=== PATIENT | female | born 1965 | race Caucasian/White ===

== ENCOUNTER 2020-08-07 12:58 | Emergency (ER) | payer BC, SELFPAY ==
[2020-08-07 13:05] VITALS: BP 112/84; PULSE 81; RESP 16; TEMP 37.6; O2SAT 97
--- NOTE | 2020-08-07 13:15 | DI.RAD_ITS ---
EXAM: XR TIB/FIB LT and XR ankle LT complete CLINICAL HISTORY: R/O fracture. TECHNIQUE: 2D digital imaging was performed COMPARISON: No previous for comparison. FINDINGS: BONES: There is an oblique fracture of the distal left fibula. There is 1-2 mm of lateral displaceme nt. The medial aspect of the fracture is at the level of the talar dome. No bony destructive lesion is seen. Visualized portion of knee and ankle joints are unremarkable. SOFT TISSUE: Soft tissue swelling about the ankle. IMPRESSION: Oblique distal left fibular fracture with 1-2 mm of lateral displacement. DATA REPOSITORY: RADIATION DOSE DELIVERED:
--- NOTE | 2020-08-07 13:19 | ED.GENADUL_ITS ---
Discharge Plan Disposition Patient Disposition: HOME Condition: Stable Discharge Details Clinical Impression: Fracture of distal end of fibula Primary Care Provider: Leonila Gong ED Provider: Laure Villeda Home Meds and New Rx's Prescriptions: No Action No Known Home Meds RF: 0 Discharge Instructions Instructions: Leg Fracture (ED) Additional Instructions: At this time your x-rays show a distal fibula fracture, please follow-up with orthopedics within 1 to 2 weeks. You will be placed on a care management list to help you with the appointment. Wear walking boot as much as possible, stay off of the leg is much as possible. Rest, ice, compression, elevation. Please take Tylenol or Ibuprofen with food every 4-6 hours as needed for pain and swelling. Referrals: Leonila Gong NP [Primary Care Provider] - Raheem Reynolds MD [ [facility] STAFF PHYSICIAN] - Discharge Data Discharge Date/Time-TO BE ENTERED AT DEPARTURE: 08/07/20 15:30 Medical Decision Making 55-year-old female presents to the ED with left ankle pain and swelling after a slip and fall down an incline earlier today. This happened around 839 morning. She was unable to ambulate on ankle after incident. Denies hitting her head or any loss consciousness no other injuries. She reports pain radiating up to her left anterior boyd. She does have swelling noted to her lateral malleolus. Dorsal pedal pulses intact, did not take any medications prior to arrival. EXAM: XR TIB/FIB LT and XR ankle LT complete CLINICAL HISTORY: R/O fracture. TECHNIQUE: 2D digital imaging was performed COMPARISON: No previous for comparison. FINDINGS: BONES: There is an oblique fracture of the distal left fibula. There is 1-2 mm of lateral displacement. The medial aspect of the fracture is at the level of the talar dome. No bony destructive lesion is seen. Visualized portion of knee and ankle joints are unremarkable. SOFT TISSUE: Soft tissue swelling about the ankle. IMPRESSION: Oblique distal left fibular fracture with 1-2 mm of lateral displacement. Discussed x-ray results with patient, verbalized understanding. Patient was placed in a walking boot and given crutches. Referral given to orthopedics. HPI General Mode of arrival: wheelchair . Date/Time Provider Initiated Documentation: 08/07/20 13:12 . Limitations to Documentation: no limitations . Information obtained by: patient . HPI Narrative: 55-year-old female presents to the ED with left ankle pain and swelling after a slip and fall down an incline earlier today. This happened around 839 morning. She was unable to ambulate on ankle after incident. Denies hitting her head or any loss consc iousness no other injuries. She reports pain radiating up to her left anterior boyd. She does have swelling noted to her lateral malleolus. Dorsal pedal pulses intact, did not take any medications prior to arrival. Related Data Home Medications Medication Instructions Recorded Confirmed Unknown [No Known Home Meds] 08/07/20 08/07/20 Allergies Allergy/AdvReac Type Severity Reaction Status Date / Time Penicillins Allergy Intermediate Unverified 08/07/20 13:12 General Stated Complaint: Orthopedic MELQUIADES: 4 Review of Systems Narrative: Constitutional: Negative for weight loss, alert and oriented, well groomed, normal body habitus, appears comfortable. HEENT: Denies trauma, headaches, blurry vision, nasal discharge, sore throat, trouble swallowing. Chest: Denies chest pain, palpitations, irregular rhythm, hypertension. Respiratory: Denies Shortness of breath, cough, hemoptysis. GI: Denies abdominal pain, nausea, vomiting, diarrhea, constipation. : Denies dysuria, hematuria, flank pain, rectal bleeding. Musculoskeletal: Complaining of left ankle pain and swelling. Neuro: Denies dizziness, blurry vision, weakness, syncope, headache or facial numbness. Hematologic: Denies easy bruising, intolerance to heat or cold, hair loss. PFSH Social History Smoking/Tobacco Use Status: Former Tobacco Use Smoking risk assessment performed?: Yes Alcohol Intake: current Alcohol Intake frequency: holidays/special occasions only Alcohol type: wine Drug use: Never Substance use type: does not use Details: quit smoking 25-30 yrs ago smoked socially Do you feel safe at home: Yes Do you feel safe in your relationship?: Yes Exam Narrative Exam Narrative: Constitutional: Alert and oriented x3. Appears stated age. Normal body habitus. Head: Normocephalic, no trauma. Eyes: Pupils PERRLA, Red reflex noted, EOM's intact. Eyelids symmetrical without lesions, discharge, or swelling. ENT: Bilateral TM's WNL, External ear normal to inspection, no mastoid TTP, swelling, or erythema, Nasal turbinates WNL, no nasal discharge. Normal dentition, Posterior pharynx WNL, no exudate. Chest: RRR, Normal S1, S2, distal pulses intact. Resp: Lungs clear to auscultation bilaterally, no wheezes, rales, or rhonchi. Musculoskeletal: Left lateral malleolus swelling, tenderness noted over lateral malleolus, dorsal pedal pulses intact, distal CMS intact, cap refill less than 2 seconds. Skin: No suspicious rashes or lesions. Capillary refill less than 2 sec. Neurologic: Cranial nerves II-XII intact. Alert and oriented x 3. DTR's intact. Hematologic/Lymphatic: No ecchymosis, no lymphadenopathy. Course Vital Signs Vital signs: Vital Signs Temperature 37.6 C H 08/07/20 13:05 Pulse 81 08/07/20 13:05 Respiratory Rate 16 08/07/20 13:05 Blood Pressure 112/84 08/07/20 13:05 Pulse Oximetry 97 08/07/20 13:05 Temperature 37.6 C H 08/07/20 13:05 Temperature Source Temporal Artery Scan 08/07/20 13:05 Pulse 81 08/07/20 13:05 Respiratory Rate 16 08/07/20 13:05 Respiratory Effort 08/07/20 13:13 Blood Pressure 112/84 08/07/20 13:05 Blood Pressure Position Sitting 08/07/20 13:05 Pulse Oximetry 97 08/07/20 13:05 Oxygen Delivery Method Room Air 08/07/20 13:05 Oxygen Flow Rate 0 08/07/20 13:05 Pain Level 6 08/07/20 13:05 Comment 08/07/20 13:05
[2020-08-07 14:03] VITALS: BP 104/67; PULSE 72; RESP 16; O2SAT 97
== END 2020-08-07 15:30 | disposition home or self-care (01) ==
PROVIDERS: Emergency Provider Registered Nurse Emergency
DX: S82.432A Displaced oblique fracture of shaft of left fibula, initial encounter for closed fracture (principal); W00.0XXA Fall on same level due to ice and snow, initial encounter; W17.81XA Fall down embankment (hill), initial encounter
CPT/HCPCS: 27786; 73590; 73610

== ENCOUNTER 2020-08-13 11:54 | Outpatient (CLI) | payer BC, SELFPAY ==
--- NOTE | 2020-08-13 10:45 | DI.RAD_ITS ---
EXAM: XR ANKLE LT COMPLETE CLINICAL HISTORY: with gravity stress view TECHNIQUE: 2D digital imaging was performed. COMPARISON: CR XR ANKLE LT COMPLETE from 08/07/2020 FINDINGS: BONES: Stable alignment of the mildly displaced distal fibular fracture. No new fracture or dislocat ion is present. No bony destructive lesion is seen. JOINTS:The ankle mortise is normally aligned. SOFT TISSUE: Soft tissue swelling about the ankle laterally. IMPRESSION: Stable distal fibular fracture. DATA REPOSITORY: RADIATION DOSE DELIVERED:
== END 2020-08-13 12:14 ==
PROVIDERS: Visit Provider Student in an Organized Health Care Education/Training Program
DX: S82.492A Other fracture of shaft of left fibula, initial encounter for closed fracture (principal)
CPT/HCPCS: 73610

== ENCOUNTER 2020-08-14 03:33 | Outpatient (CLI) | payer BC, SELFPAY ==
[2020-08-16 11:49] LABS: SARS-CoV-2 RNA Not Detected (NotDetected); SARS-CoV-2 RNA Source Nasal/Nares
== END 2020-08-14 03:53 ==
PROVIDERS: Visit Provider Student in an Organized Health Care Education/Training Program
DX: Z11.59 Encounter for screening for other viral diseases (principal); Z01.818 Encounter for other preprocedural examination
CPT/HCPCS: U0003

== ENCOUNTER 2020-08-19 06:17 | Day surgery (SDC) | payer BC, SELFPAY ==
[2020-08-19] VITALS (14 sets, daily range): BP systolic 74–122; BP diastolic 43–69; PULSE 60–88; RESP 12–19; TEMP 36.2–36.5; O2SAT 98–100
[2020-08-19] MEDS: Acetaminophen 500 MG TAB 1000 MG PO (07:01)
[2020-08-19] MEDS: Celecoxib 200 MG CAP 400 MG PO (07:01)
[2020-08-19] MEDS: Lactated Ringers 1,000 ML 80 ML IV ×2 (07:02→10:01)
[2020-08-19] MEDS: Bupivacaine 0.5% Pres-Free 30 ML VIAL ×2 (07:31→08:11)
--- NOTE | 2020-08-19 07:37 | PDOC.DSDIS_ITS ---
Discharge Plan Disposition Patient Disposition: HOME Condition: Good Discharge Details Reason For Visit: Left distal fibula fracture Attending Provider: Raheem Reynolds Primary Care Provider: Leonila Gong Home Meds and New Rx's Prescriptions: New hydrocodone-acetaminophen 5-325 mg tablet 1 tab PO Q4H PRN (Reason: pain) Qty: 14 RF: 0 aspirin 81 mg tablet,delayed release (DR/EC) 81 mg PO BID Qty: 60 RF: 0 acetaminophen 500 mg tablet 500 mg PO Q6H PRN PRN (Reason: pain) Qty: 60 RF: 3 docusate sodium [Colace] 100 mg capsule 100 mg PO BID PRNQty: 10 RF: 0 ibuprofen 600 mg tablet 600 mg PO TID PRNQty: 60 RF: 3 Discontinued ibuprofen 200 mg Tablet 400 mg PO Q4H PRNRF: 0 Discharge Instructions Additional Instructions: Ankle ORIF Discharge Instructions Activity: You are TOUCHDOWN WEIGHT BEARING. You should keep the leg elevated as much as possible. You may wiggle your toes and move your hip and knee. You may rest your leg on the ground for balance with mobilization but should avoid pushing off. Use your crutches to assist in this. Use your knee scooter as much as you can at first. Dressings: You should keep your splint clean and dry. Do NOT get wet or dirty. If you have issues with your splint, please call the office at [phone] Reynolds directly at [phone]. Medications: - You should take Tylenol and Ibuprofen around the clock for baseline pain. - You have been prescribed a stronger narcotic, Hydrocodone, for breakthrough pain. - You should take a Baby Aspirin (81mg) twice a day for blood clot prevention. Follow-up: 2 weeks Referrals: Raheem Reynolds MD [ [facility] STAFF PHYSICIAN] - Equipment/Supplies: Partial Weight Bearing Crutches Activity:: Elevate Remove Dressings/Wound Care:: Do Not Remove Shower/Bathe:: Cover Diet:: As Tolerated Discharge Orders Discharge Orders: Discharge Order (Routine); Ordered 08/19/20 Ordered By: Raheem Reynolds DS: Diagnosis Discharge Diagnosis (1) Fracture of distal end of fibula: Status: Acute
[2020-08-19] MEDS: ceFAZolin 2 GM/50 ML BAG IVPB (07:46)
--- NOTE | 2020-08-19 08:40 | DI.RAD_ITS ---
EXAM: XR ANKLE LT COMPLETE CLINICAL HISTORY: left ankle fracture TECHNIQUE: COMPARISON: No exams were available for comparison FINDINGS: C-arm fluoroscopy was utilized by Dr. Reynolds during open reduction and internal fixation of fractur e of the distal fibula. Hard copy shows plate and screw fixation in place. Fluoro time, 20.5 seconds. IMPRESSION: RADIATION DOSE DELIVERED: Total DLP
[2020-08-19] MEDS: ePHEDrine 50 MG/ML VIAL IVP (09:39)
--- NOTE | 2020-08-19 13:31 | PT.INIE ---
Date of service: 08/19/20 Time of Service: 13:31 PT Notes Visit Reasons: Left distal fibula fracture Physical Therapy Inpatient Initial Evaluation Date: 08/19/2020 Referring Doctor: Raheem Reynolds MD PT Orders: PT CONSULT: Eval for assistive device. Crutch training. Has knee scooter. TTWB left LE. Precautions: Fall. Standard. TTWB L LE. Patient Profile/Admitting Diagnosis: Kristen is a 55-year-old female who sustained a left distal fibular fracture from a slip and fall on an incline on 08/07/2020 and is status post ORIF on postoperative day 0. PMHX: Unremarkable Social History/Home Situation: Lives with son in a split-level home with 3 steps to enter and rails on both sides. She has another 4 steps to her bedroom. States that she can stay on the main floor of the house weeks until she sees the orthopedic surgeon. Independent with all aspects of ADLs prior to surgery. Equipment Owned/DME: Bilateral axillary crutches, knee scooters x 2 Subjective: Reports minimal groin pain throughout PT session which Mandeep Eagle think may be from positioning while in the OR. Complains of L foot numbness from anetshesia. Denies headache, dizziness, chest pain throughout. Objective: General Observation: Mandeep Eagle assisting for safety. L leg and foot in a splint wrapped with HUMZA bandages. Iv access in dorsum of R wrist. Mental Status: Alert and oriented x4 Pain: minimal groin pain Vital Signs: WNL as closely monitored by Nurse Carrasco ROM: Right Upper Extremity: Shoulder Flexion WFL. Shoulder abduction WFL. Elbow flexion WFL. Wrist flexion WFL. Opening and closing of hand WFL. Left Upper Extremity: Shoulder Flexion WFL. Shoulder abduction WFL. Elbow flexion WFL. Wrist flexion WFL. Opening and closing of hand WFL. Right Lower Extremity: Hip flexion WFL. Hip abduction WFL. Knee flexion WFL. Ankle dorsiflexion NT. Ankle plantarflexion NT. Left Lower Extremity: Hip flexion WFL. Hip abduction WFL. Knee flexion WFL. Ankle dorsiflexion WFL. Ankle plantarflexion WFL. Strength: Right Upper Extremity: Shoulder flexors 5/5. Shoulder abductors 5/5. Elbow flexors 5/5. Elbow extensors 5/5. Information Technology Architect strong. Left Upper Extremity: Shoulder flexors 5/5. Shoulder abductors 5/5. Elbow flexors 5/5. Elbow extensors 5/5. Information Technology Architect strong. Right Lower Extremity: Hip flexors 5/5. Hip abductors 5/5. Knee flexors 5/5. Knee extensors 4-/5. Ankle dorsiflexors NT. Ankle plantarflexors NT. Left Lower Extremity:Hip flexors 5/5. Hip abductors 5/5. Knee flexors 5/5. Knee extensors 5/5. Ankle dorsiflexors 5/5. Ankle plantarflexors 5/5. Sensation: Intact as to pain and pressure on bilateral lower extremities except in the L foot Bed Mobility/Transfers: Rolling supervision Supine to sit supervision Sit to supine supervision Sit to stand contact-guard assist Stand to sit contact-guard assist Bed to chair contact-guard assist Chair to bed contact-guard assist Gait: 25 feet level surface ambulation using front wheeled walker with toe-touch weight bearing on the left LE. 5 feet of short distance ambulation from bottom of steps to back to chair with toe-touch weight bearing on the left LE. Up and down eight 6-inch steps while holding onto 1 rail with 1 hand and a crutch with the other hand with minimal assist. Patient required minimal to moderate verbal cueing for correct technique and safety. Balance: Static Sitting: Normal Dynamic Sitting: Normal Static Standing: Fair Dynamic Standing: Fair Special Tests: Mobility Limitations Standardized Measure [facility] AM-PAC 6 clicks Basic Mobility Inpatient Short Form: Raw Score: 18 CMS Score: 47% deficit Informed Consent/Education: Patient instructed in purpose of PT consult and plan of care. Assessment: Kristen demonstrates functional mobility decline requiring the use of a front wheeled walker for all mobility ADL performance and bilateral axillary crutches for short distance ambulation, balance limitation due to weight bearing restriction on the left LE, and increased risk for falls due to postoperative status. She will require assistance from another person for safety to get into her entrance steps while holding onto bilateral rails. She understands the importance of using her knee scooter for all transfer and ambulation task performance to ensure that she does not put any unnecessary weight on the left LE as she remains numb in the left foot. She is confident about going home today as she will have the assistance of the her son's friend on the entrance steps. She plans on staying on the main floor of the house where she can safely access the kitchen and the bathroom. Patient presents with clinical signs and symptoms consistent with current/admitting diagnoses that have resulted to mobility limitations, gait instability, generalized weakness, and impairment of motor control as demonstrated by the following impairment level findings: 1. Decreased strength to left leg and ankle major muscle groups 2. Impaired sitting/standing balance 3. Impaired activity tolerance 4. Limitation of joint range of motion in left ankle Impairments are contributing to the following functional limitations: 1. Inability to safely ambulate without assistive device 2. Increase completion time for mobility ADL performance 3. Increased fall risk 4. Inability to negotiate steps alone safely Patient is assessed as a [id number] moderate complexity based on the following: History: 55-year-old female with impairment level findings, functional limitations, and past medical history as indicated above Examination: Demonstrable impairment in strength, balance, and mobility level with underlying impairments and functional limitations as documented above Presentation:Evolving Decision Makin moderate complexity Goals: N/A. PT consult and 1 treatment session only for education and training with the use of assistive device for all mobility ADL performance. Plan of Care/Treatment Plan: N/A. PT consult and 1 treatment session only for education and training with the use of assistive device for all mobility ADL performance. DISCHARGE RECOMMENDATIONS: Outpatient PT services in 2 weeks to facilitate return to premorbid independent level. TREATMENT CODE/TIME: 47274 x 25 minutes, 48291 x 14 minutes beginning at 13:31 PM. Thank you for the opportunity to participate in the care of this patient. Tiara Flores PT, DPT, CLT [facility] [place], [place]
--- NOTE | 2020-08-19 13:49 | W.PM.OP ---
Date of service: 08/19/20 Time of Service: 08:49 Operative Note Operative Note DATE OF PROCEDURE: 08/19/20 PRE-OP DIAGNOSIS: Left Ankle Fracture - Distal Fibula POST-OP DIAGNOSIS: same PROCEDURE: Open Reduction and Internal Fixation of Left Ankle - Distal Fibula SURGEON: Raheem Reynolds CHARGE MASTER ANALYST: Jemal Hilario ANESTHESIA: spinal ESTIMATED BLOOD LOSS: 50 PATHOLOGY: none sent TOURNIQUET TIME: 0 COMPLICATIONS: None Patient was transported to: PACU Patient's condition: stable Indications: Kristen is a 55yo female who presented to the Emergency Department after a fall. X-rays confirmed the diagnosis of a ankle fracture, distal fibula. She was treated conservatively at first but repeat x-rays showed widening of the ankle mortise and abnormal talar tilt as a result of the displaced Alvarez B fibula fracture. Therefore, I reviewed the possible treatment options and given these findings, I recommended operative fixation. I discussed the technical details of the surgery. I reviewed the risks such as bleeding, infection, pain, stiffness, malunion, nonunion, hardware prominence, hardware faiilure, malrotation, damage to nerves and vessels, blood clot. Despite these risks, Kristen agreed to proceed. Findings: There was a fracture of the fibula which was reduced with traction and internal rotatio. This was secured with a clamp and k-wire. The fracture was fixed with a distal fibula locking plate. Procedure Description: Kristen was greeted in the preoperative area. Consent was previously reviewed and signed. Once in the operating room, anesthesia was administered. The patient was transferred to the fracture table in the supine position. She was positioned in the supine position with the operative side placed onto a bone foam ramp. All bony prominences were well padded. Arms were placed out to the side, padded, and secured. A single dose of TXA, 1 gram, was then administered IV. Prophylactic antibiotics, Cefazolin 2 grams, was given for prophylactic antibiotics. A timeout was performed for safe surgery. The left leg was prepped with Chloraprep. The leg was draped with a stockinette and extremity drape. A longitudinal incision was made overlying the fibula. Dissection was carried sharply the skin is cutaneous tissue. Deeper tissue was dissected bluntly to expose the fascia of the fibula. The fibular fascia was incised sharply with Bovie electrocautery. Flaps were elevated anteriorly and posteriorly to expose the fibula and fracture. Fracture was opened up with a [place] elevator. A curette was used to clear of any early healing, fibrous tissue, clot, or debris. The fracture is mobile reduction was performed by internally rotating and applying traction to the fibular fragment. This was then held with a clamp. The fracture was oriented in a distal medial to proximal lateral direction. Lying this fracture will be challenging without impending the complaints therefore I told the reduction with a clamp. Placed a K wire across the fracture to hold. X-rays used to confirm appropriate positioning of the fibula and reduction of the talus. The distal fibular plate was applied. Once happy with this position, a single 3.5 mm cortical screw was placed proximally in the oblong hole. A clamp was used to keep the distal end of the plate on the bone and manual pressure was also applied. Then placed a locking screw to hold the plate on bone. A total of 4 locking screws were placed in this distal fragment. Once again x-ray was used to confirm appropriate positioning of the plate and the hardware. I then placed 2 proximal cortical screws one 2.7 and one 3.5. The wound was thoroughly irrigated. Final x-rays were obtained. External rotation stress views were obtained and they show no change in position of the talus. Deep tissues and subtenons tissue was injected with a mixture of 0.25% ropivacaine, 30 mg ketorolac, and 20 cc of Exparel. The fascia was closed with 0 Vicryl. Deep tissues closed with 2-0 Vicryl. Skin was closed with a running 3-0 Monocryl. Mepilex silver dressings applied followed by web roll and ABD pads. She was placed into a posterior slab splint. At the end of the case, all counts were correct. She left tolerated the procedure well without known complication and was taken to the PACU for recovery. She will be discharged to home. She is toe-touch weightbearing on the left leg dimension start aspirin 81 mg twice daily for DVT prophylaxis.
== END 2020-08-19 14:56 | disposition home or self-care (01) ==
PROVIDERS: Visit Provider Student in an Organized Health Care Education/Training Program
PROC: (CPT 27792; principal; 2020-08-19 07:30)
DX: S82.62XA Displaced fracture of lateral malleolus of left fibula, initial encounter for closed fracture (principal); W19.XXXA Unspecified fall, initial encounter
CPT/HCPCS: 27792; 76942; 97162; 97530; 73610; J0690; J1885; J2001; J2250; J2405

== ENCOUNTER 2020-09-04 11:16 | Outpatient (CLI) | payer BC, SELFPAY ==
--- NOTE | 2020-09-04 10:45 | DI.RAD_ITS ---
EXAM: XR ANKLE LT COMPLETE INDICATION: f/u fracture. COMPARISON: CR XR ANKLE LT COMPLETE from 08/13/2020 XR ANKLE LT COMPLETE from 08/19/2020 TECHNIQUE: 2D digital imaging was performed. FINDINGS: The ankle is viewed within a splint. A fixation plate is again noted in the lateral malleolus. The fracture appears anatomically aligned. No ankle mortise widening is seen. DATA REPOSITORY: RADIATION DOSE DELIVERED:
== END 2020-09-04 11:36 ==
PROVIDERS: Visit Provider Student in an Organized Health Care Education/Training Program
DX: S82.492A Other fracture of shaft of left fibula, initial encounter for closed fracture (principal)
CPT/HCPCS: 73610

== ENCOUNTER → 2020-10-02 10:52 | Outpatient (CLI) | payer BC, SELFPAY ==
--- NOTE | 2020-10-02 10:45 | DI.RAD_ITS ---
EXAM: XR ANKLE LT COMPLETE CLINICAL HISTORY: F.U FRACTURE. TECHNIQUE: 2D digital imaging was performed. COMPARISON: CR XR ANKLE LT COMPLETE from 09/04/2020 FINDINGS: BONES: There are stable post operative changes present. No new fracture or dislocation. The bones ar e osteopenic likely from decreased use. JOINTS: The joint spaces are well maintained. No joint effusion is present. SOFT TISSUE: Normal. The cast has been removed. IMPRESSION: Stable postoperative changes. DATA REPOSITORY: RADIATION DOSE DELIVERED:
== END ==
PROVIDERS: Visit Provider Student in an Organized Health Care Education/Training Program
DX: S82.892A Other fracture of left lower leg, initial encounter for closed fracture (principal)
CPT/HCPCS: 73610

== ENCOUNTER 2020-11-13 11:25 | Outpatient (CLI) | payer BC, SELFPAY ==
--- NOTE | 2020-11-13 10:30 | DI.RAD_ITS ---
EXAM: XR ANKLE LT COMPLETE INDICATION: fu left ankle orif. COMPARISON: CR XR ANKLE LT COMPLETE from 08/07/2020 CR XR TIB/FIB LT from 08/07/2020 CR XR ANKLE LT COMPLETE from 08/07/2020 CR XR ANKLE LT COMPLETE from 10/02/2020 TECHNIQUE: 2D digital imaging was performed. FINDINGS: A fixation plate is again noted a long the lateral malleolus. Fracture is no longer discretely visib le. The ankle mortise is not appear widened. No talar dome defect is seen. The bones appear osteop enic from disuse. DATA REPOSITORY: RADIATION DOSE DELIVERED:
== END 2020-11-13 11:26 | disposition home or self-care (01) ==
LOC: DIORS 11:25
PROVIDERS: Visit Provider Internal Medicine
DX: S82.62XD Displaced fracture of lateral malleolus of left fibula, subsequent encounter for closed fracture with routine healing (principal); M85.88 Other specified disorders of bone density and structure, other site
CPT/HCPCS: 73610